=== PATIENT | female | born 1980 | race Caucasian/White ===

== ENCOUNTER 2018-02-28 18:25 | Emergency (ER) | payer OTHER ==
[2018-02-28 19:11] VITALS: TEMP 98.6; BMI 23.8
[2018-02-28] MEDS ORDERED: KETOROLAC TROMETHAMINE 30 MG/1 ML VIAL IM ONE (21:07)
[2018-02-28] MEDS ORDERED: CYCLOBENZAPRINE HCL 5 MG TABLET PO ONE (21:09)
[2018-02-28] MEDS ORDERED: CYCLOBENZAPRINE HCL 10 MG TABLET (FP) ONE (21:15)
[2018-02-28] MEDS ORDERED: KETOROLAC TROMETHAMINE 30 MG/1 ML VIAL ONE (21:16)
--- NOTE | 2018-02-28 21:21 | PDOC ---
History of Present Illness - General Chief Complaint: Pain Stated Complaint: RIGHT SIDE PAIN Time Seen by Provider: 02/28/18 20:50 History Source: Patient Exam Limitations: No Limitations - History of Present Illness Initial Comments: 02/28/18 21:16 this is a healthy 37 yo F with no PMH, who presents with R shoulder/r sided neck pain. Patient woke up in the morning and noticed pain in R Trap, R shoulder and R upper back, exacerbated by movement. she denies weakness, numbness or tingling. denies any unusual physical activity last night, denies injury to shoulder or neck. this has not occurred before. patient came to ED because she has small kids and needs to be able to use her RUE w/o limitation mckenzie. denies f/c, h/a, sob, cp. 02/28/18 21:19 Past History - Past Medical History Allergies/Adverse Reactions: Allergies Allergy/AdvReac Type Severity Reaction Status Date / Time No Known Allergies Allergy Verified 02/28/18 19:10 Home Medications: Ambulatory Orders Cyclobenzaprine HCl [Flexeril 10 mg] 10 mg PO BID PRN #6 tablet 02/28/18 Ibuprofen [Motrin -] 400 mg PO TID #21 tablet 02/28/18 COPD: No - Suicide/Smoking/Psychosocial Hx Smoking History: Never smoked Have you smoked in the past 12 months: No Information on smoking cessation initiated: No Hx Alcohol Use: No Drug/Substance Use Hx: No Review of Systems - Review of Systems Constitutional: No: Chills, Fever, Weakness Cardiac (ROS): No: Chest Pain, Edema, Palpitations, Syncope ABD/GI: No: Constipated, Diarrhea, Abdominal cramping : No: Dysuria Musculoskeletal: Yes: Back Pain, Muscle Pain, Neck Pain. No: Joint Swelling, Muscle Weakness, Joint Stiffness Integumentary: No: Bruising Neurological: No: Headache, Numbness, Paresthesia, Tingling, Weakness, Dizziness *Physical Exam - Vital Signs Last Vital Signs Temp Pulse Resp BP Pulse Ox 98.6 F 74 18 123/74 100 02/28/18 19:07 02/28/18 19:07 02/28/18 19:07 02/28/18 19:07 02/28/18 19:07 - Physical Exam General Appearance: Yes: Nourished, Appropriately Dressed. No: Apparent Distress HEENT: positive: EOMI, CHIRAG, Normal Voice, Symmetrical Neck: positive: Normal Thyroid, Supple, Other (R SCM and trap tender to palpation. limited ROM in flexion and rotation L due to pain ) Respiratory/Chest: positive: Lungs Clear, Normal Breath Sounds. negative: Chest Tender Cardiovascular: positive: Regular Rhythm, Regular Rate, S1, S2. negative: JVD Gastrointestinal/Abdominal: positive: Normal Bowel Sounds, Soft. negative: Tender Musculoskeletal: positive: Decreased Range of Motion (in shoulder flexion (mild ) and neck flexion/rotation L ), Muscle Spasm (in R trap, r upper back, R deltoid). negative: CVA Tenderness Extremity: negative: Swelling, Erythema Integumentary: positive: Dry, Warm Neurologic: positive: wiping rag washer II-XII NML intact, Fully Oriented, Alert, Normal Mood/ Affect, Normal Response, Motor Strength 5/5 Moderate Sedation - Procedure Monitoring Vital Signs: Procedure Monitoring Vital Signs Temperature 98.6 F 02/28/18 19:07 Pulse Rate 74 02/28/18 19:07 Respiratory Rate 18 02/28/18 19:07 Blood Pressure 123/74 02/28/18 19:07 O2 Sat by Pulse Oximetry (%) 100 02/28/18 19:07 ED Treatment Course - ADDITIONAL ORDERS Additional order review: 02/28/18 21:22 patient has muscle spasm in R trapezius/deltoid due to uncomfortable sleeping position. cervical spineinjury or rotator cuff injury unlikely due to lack of trauma and young age. patient agreed to IM toradol injection to R deltoid trigger point. will give flexeril. will prescribe short course of flexeril and motrin, recommend stretching and f/u with PCP. 02/28/18 21:30 *DC/Admit/Observation/Transfer Diagnosis at time of Disposition: Muscle spasm of right shoulder - Discharge Dispostion Disposition: HOME Condition at time of disposition: Good - Prescriptions Prescriptions: Cyclobenzaprine HCl [Flexeril 10 mg] 10 mg PO BID PRN #6 tablet PRN Reason: Pain Ibuprofen [Motrin -] 400 mg PO TID #21 tablet - Referrals Referrals: Kristal Scott MD [Primary Care Provider] - - Patient Instructions Additional Instructions: Yous symptoms are most likely due to muscle spasm in your right shoulder. take flexeril as needed for shoulder pain twice a day, do not operate machinery or drink alcohol while taking this medication as it may make you drowsy take motrin up to 3 times a day as needed for shoulder pain, on a full stomach. stretch the R shoulder. If symptoms do not improve in a week, f/u with PCP for further workup - Post Discharge Activity Forms/Work/School Notes: Back to Work
--- NOTE | 2018-02-28 21:50 | PDOC ---
Attending Attestation - Resident Resident Name: Bren Corbinudmila - ED Attending Attestation I have performed the following: I have examined & evaluated the patient, The case was reviewed & discussed with the resident, I agree w/resident's findings & plan, Exceptions are as noted - HPI HPI: 02/28/18 21:49 37 yo female p/w rt shoulder pain upon awakening this morning - Physicial Exam PE: 02/28/18 21:50 wnwd 37 yo female with right shoulder pain head ncat ++tenderness along rt trapezius muscle,good hand grasp,proprioception intact neck no midline tenderness,no bruits cvs [id number] lungs cta b/l abd nontender no flank pain neuro axox3,no focal neuro deficits,motor strength 5/5 b/l skin warm and dry, no rashes, - Medical Decision Making 02/28/18 21:55 imp musculoskeletal pain/trapezius muscle trigger point treated with IM injection of toradol
[2018-02-28 22:06] VITALS: BP 120/66; PULSE 70
== END 2018-02-28 21:45 | disposition home or self-care (01) ==
LOC: JER 18:25
PROC: 3E0233Z Introduction of Anti-inflammatory into Muscle, Percutaneous Approach (ICD-10-PCS; principal; 2018-02-28)
DX: M62.838 Other muscle spasm (principal)
CPT/HCPCS: 96372; 99282-25